=== PATIENT | female | born 1950 | race Caucasian/White ===

== ENCOUNTER 2017-07-23 08:21 | Outpatient (CLI) | payer MEDICARE, MEDICAID ==
--- NOTE | 2017-07-23 08:49 | RAD ---
FOUR VIEWS CERVICAL SPINE: History: Spondylosis, myelopathy. M54.12 FINDINGS: AP, lateral, swimmer's and open mouth odontoid view cervical spine is obtained. Images demonstrates ACDF with anterior fusion hardware fusing the C4, C5, C6, and C7 vertebra. There are degenerative changes with disc space height loss of the C3-4 intervertebral disc space. Osteoph ytes also seen along the anterior and posterior aspects. IMPRESSION: C4, C5, C6 and C7 ACDF with C3-4 changes of spondylosis. POS: [facility]
== END 2017-07-23 08:22 | disposition home or self-care (01) ==
LOC: TBSIIMAG 08:21
PROVIDERS: ATTEND Surgery
DX: M47.12 Other spondylosis with myelopathy, cervical region (principal); Z98.1 Arthrodesis status
CPT/HCPCS: 72040

== ENCOUNTER 2017-10-02 09:52 | Outpatient (CLI) | payer MEDICARE, MEDICAID ==
--- NOTE | 2017-10-02 11:31 | SJPRAD ---
RIGHT HIP: Two views. HISTORY: Right hip pain. FINDINGS: There is a right hip prosthesis. Components appear in adequate position and alignment. No plain jude m evidence of loosening of the components. No acute fracture. IMPRESSION: Right hip prosthesis noted, but no evidence of acute abnormality. POS: [facility]
== END 2017-10-02 09:53 | disposition home or self-care (01) ==
LOC: MWLC RAD 09:52
PROVIDERS: ATTEND Family Medicine
DX: M25.551 Pain in right hip (principal); Z96.641 Presence of right artificial hip joint

== ENCOUNTER 2018-09-14 07:46 | Outpatient (CLI) | payer MEDICARE, MEDICAID ==
--- NOTE | 2018-09-14 10:25 | BD ---
DEXA BONE MINERAL DENSITY STUDY: HISTORY: Osteoporosis. COMPARISON: DEXA study from 2008. FINDINGS: Bilateral wrist reviewed for bone mineral density. Right forearm: BMD (g/cm2) One third 0.619 T-Score: -1.2 0.6 Mid 0.512 T-Score: -1.7 0.1 Ultra distal 0.396 T-Score: -0.8 0.5 Total 0.503 T-Score: -1.4 0.4 WHO classification osteopenia. Left forearm: Ultra distal 0.443 T-Score: 0.0 1.4 Mid 0.532 T-Score: -1.4 0.5 One third 0.637 T-Score: -1.0 0.9 Total 0.529 T-Score: -0.9 0.9 WHO classification normal. Impression: Osteopenia of the right forearm. POS: [facility]
== END 2018-09-14 07:47 | disposition home or self-care (01) ==
LOC: BICMAMMO 07:46
PROVIDERS: ATTEND Family Medicine
DX: Z12.31 Encounter for screening mammogram for malignant neoplasm of breast (principal); M81.0 Age-related osteoporosis without current pathological fracture; M85.831 Other specified disorders of bone density and structure, right forearm
CPT/HCPCS: 77063; 77067; 77080

== ENCOUNTER 2019-09-27 13:12 | Outpatient (CLI) | payer MEDICARE, MEDICAID ==
--- NOTE | 2019-09-27 13:38 | MMO ---
Bilateral MAMMO Bilat Screen [facility]. CLINICAL HISTORY: Patient is 68 years old and is seen for screening. The patient has no family history of breast cancer. The patient has no personal history of cancer. VIEWS: The views performed were: bilateral craniocaudal with tomosynthesis and bilateral mediolateral oblique with tomosynthesis. FILMS COMPARED: The present examination has been compared to prior imaging studies performed at [facility] on 08/31/2008, 04/26/2014, 04/07/2017 and 09/14/2018. This study has been interpreted with the assistance of computer-aided detection. MAMMOGRAM FINDINGS: The breasts are almost entirely fat. There are stable benign appearing calcifications seen in both breasts. There are no suspicious masses, suspicious calcifications, or new areas of architectural distortion. IMPRESSION: THERE IS NO MAMMOGRAPHIC EVIDENCE OF MALIGNANCY. A ROUTINE FOLLOW-UP MAMMOGRAM IN 1 YEAR IS RECOMMENDED. THE RESULTS OF THIS EXAM WERE SENT TO THE PATIENT. ACR BI-RADS Category 2 - Benign finding MAMMOGRAPHY NOTE: 1. A negative mammogram report should not delay a biopsy if a dominant of clinically suspicious mass is present. 2. Approximately 10% to 15% of breast cancers are not detected by mammography. 3. Adenosis and dense breasts may obscure an underlying neoplasm. Reported by: DEYSI HEWITT MD Electonically Signed: [id number]
== END 2019-09-27 13:13 | disposition home or self-care (01) ==
LOC: BICMAMMO 13:12
PROVIDERS: ATTEND Family Medicine
DX: Z12.31 Encounter for screening mammogram for malignant neoplasm of breast (principal)
CPT/HCPCS: 77063; 77067

== ENCOUNTER 2021-01-18 10:15 | Outpatient (CLI) | payer MEDICARE, OTHER | END 2021-01-18 10:16 | disposition home or self-care (01) | LOC: BICMAMMO 10:15 | PROVIDERS: ATTEND Family Medicine | DX: Z12.31 Encounter for screening mammogram for malignant neoplasm of breast (principal); M85.88 Other specified disorders of bone density and structure, other site | CPT/HCPCS: 77063; 77067; 77080 ==

== ENCOUNTER 2022-04-02 09:07 | Outpatient (CLI) | payer MEDICARE, MEDICAID | END 2022-04-02 09:08 | disposition home or self-care (01) | LOC: BICRAD 09:07 | PROVIDERS: ATTEND Family Medicine | DX: M54.50 Low back pain, unspecified (principal); M25.559 Pain in unspecified hip; R10.32 Left lower quadrant pain; M47.816 Spondylosis without myelopathy or radiculopathy, lumbar region | CPT/HCPCS: 72100; 72190 ==

== ENCOUNTER 2022-07-02 09:24 | Outpatient (CLI) | payer OTHER, MEDICAID | END 2022-07-02 09:25 | disposition home or self-care (01) | LOC: BICMAMMO 09:24 | PROVIDERS: ATTEND Family Medicine | DX: M81.0 Age-related osteoporosis without current pathological fracture (principal) | CPT/HCPCS: 77080 ==

== ENCOUNTER 2023-04-25 08:38 | Outpatient (CLI) | payer OTHER, MEDICAID | END 2023-04-25 08:39 | disposition home or self-care (01) | LOC: BICMAMMO 08:38 | PROVIDERS: ATTEND Family Medicine | DX: Z12.31 Encounter for screening mammogram for malignant neoplasm of breast (principal) | CPT/HCPCS: 77063; 77067 ==

== ENCOUNTER 2024-09-02 14:23 | Outpatient (CLI) | payer OTHER, MEDICAID | END 2024-09-02 14:24 | disposition home or self-care (01) | LOC: BICRAD 14:23 | PROVIDERS: ATTEND Family Medicine | DX: M54.2 Cervicalgia (principal); M25.552 Pain in left hip; M25.551 Pain in right hip | CPT/HCPCS: 72040 ==

== ENCOUNTER 2024-11-10 09:59 | Outpatient (CLI) | payer OTHER, MEDICAID | END 2024-11-10 10:00 | disposition home or self-care (01) | LOC: BICMRI 09:59 | PROVIDERS: ATTEND Family Medicine | DX: M54.2 Cervicalgia (principal); M48.02 Spinal stenosis, cervical region; Z98.1 Arthrodesis status | CPT/HCPCS: 72141 ==

== ENCOUNTER 2025-08-09 08:16 | Outpatient (CLI) | payer OTHER, MEDICAID | END 2025-08-09 08:17 | disposition home or self-care (01) | LOC: BICRAD 08:16 | PROVIDERS: ATTEND Physician Assistant | DX: M48.02 Spinal stenosis, cervical region (principal); M40.40 Postural lordosis, site unspecified; Z98.1 Arthrodesis status | CPT/HCPCS: 72040 ==